=== PATIENT | female | born 1995 | race Two or more races ===

== ENCOUNTER 2024-05-05 12:14 | Inpatient (IN) | payer MEDICAID, OTHER ==
[~2024-05-05] VITALS: Ht 167.6 cm; Wt 75.8 kg
[2024-05-05] MEDS ORDERED: HALOPERIDOL 5 MG TABLET PO PRN (13:15)
[2024-05-05 14:43] LABS: BASOPHILS % (AUTO) 0.3 % (0.0-2.0); EOSINOPHILS % (AUTO) 0.3 % (1.0-6.0); HEMATOCRIT 39.3 % (36-46); HEMOGLOBIN 13.2 g/dL (12.0-16.0); LYMPHOCYTES # (AUTO) 1.8 K/uL (1.0-4.8); LYMPHOCYTES % (AUTO) 17.2 % (22.0-44.0); MEAN CORPUSCULAR HEMOGLOBIN 30.1 pg (26.0-34.0); MEAN CORPUSCULAR HGB CONC 33.7 G/dL (31.0-37.0); MEAN CORPUSCULAR VOLUME 89 fL (80-100); MONOCYTES # (AUTO) 0.5 K/uL (0.1-1.0); MONOCYTES % (AUTO) 4.5 % (2.0-9.0); NEUTROPHILS % (AUTO) 77.7 % (40.0-70.0); PLATELET COUNT (AUTO) 309 K/uL (150-450); RED CELL DISTRIBUTION WIDTH 12.8 % (11.5-14.5); WHITE BLOOD COUNT (AUTO) 10.3 K/uL (4.5-11.0)
[2024-05-05 14:55] LABS: ANION GAP 9 mmol/L (8-16); CALCIUM, TOTAL 9.5 mg/dL (8.8-10.5); CARBON DIOXIDE 27 mmol/L (22-29); CHLORIDE 102 mmol/L (98-107); CREATININE 0.77 mg/dL (0.60-1.30); GLOMERULAR FILTR. RATE CALC > 60 mL/min (>60); GLUCOSE,RANDOM 98 mg/dL (70-110); POTASSIUM 3.9 mmol/L (3.5-5.1); SODIUM SERUM 138 mmol/L (136-145); UREA NITROGEN, BLOOD 11 mg/dL (7-18)
[2024-05-05 14:59] LABS: ALCOHOL, BLOOD (SERUM) < 3 mg/dL (0-10)
[2024-05-05 16:17] LABS: COVID AG,FIA SOURCE NASAL SWAB
[2024-05-05 16:29] LABS: SARS-COV2 (COVID) ANTIGEN,FIA Negative (Negative)
[2024-05-05 17:43] VITALS: BP 121/84; PULSE 68; RESP 18; TEMP 97.8; O2SAT 96
[2024-05-05 20:43] VITALS: BP 106/68; PULSE 71; RESP 18; TEMP 97.4; O2SAT 98
[2024-05-06 10:17] VITALS: BP 115/69; PULSE 69; RESP 18; TEMP 97.6; O2SAT 97
[2024-05-06] MEDS: ARIPiprazole 10 MG TABLET PO SCH (11:53)
[2024-05-06 20:36] VITALS: BP 111/71; PULSE 78; RESP 18; TEMP 98.7; O2SAT 97
[2024-05-07 09:08] VITALS: BP 116/60; PULSE 86; RESP 18; TEMP 98.7; O2SAT 97
[2024-05-07] MEDS: LORazepam 2 MG TABLET PO PRN (13:43)
[2024-05-07] MEDS: PALIPERIDONE PALMITATE 156 MG/ML SYRINGE IM SCH (17:07)
[2024-05-07] MEDS: ZOLPIDEM TARTRATE 10 MG TABLET PO PRN (21:39)
[2024-05-07 22:42] VITALS: BP 108/67; PULSE 89; RESP 18; TEMP 98.4; O2SAT 95
[2024-05-08 09:48] VITALS: BP 97/61; PULSE 93; RESP 18; TEMP 98.7; O2SAT 98
[2024-05-08 23:33] VITALS: BP 109/64; PULSE 77; RESP 18; TEMP 98.9; O2SAT 98
[2024-05-09 09:24] VITALS: BP 110/62; PULSE 80; RESP 17; TEMP 98.4; O2SAT 98
[2024-05-09] MEDS ORDERED: POTASSIUM CHLORIDE 20 MEQ ER TABLET PO ONE (19:00)
[2024-05-10 08:00] VITALS: BP 98/60; PULSE 88; RESP 18; TEMP 97.6; O2SAT 97
[2024-05-10 21:42] VITALS: BP 108/61; PULSE 60; RESP 18; TEMP 97.4; O2SAT 98
[2024-05-11 09:18] VITALS: BP 110/65; PULSE 72; RESP 19; TEMP 97.5; O2SAT 98
[2024-05-11 21:13] VITALS: BP 98/63; PULSE 19; RESP 18; TEMP 98; O2SAT 98
[2024-05-12 09:42] VITALS: BP 108/67; PULSE 70; RESP 18; TEMP 97.4; O2SAT 98
[2024-05-12 21:37] VITALS: BP 99/60; PULSE 80; RESP 18; TEMP 98.4; O2SAT 98
[2024-05-13 08:22] VITALS: BP 116/71; PULSE 83; RESP 18; TEMP 98.1; O2SAT 97
[2024-05-13 21:42] VITALS: BP 123/70; PULSE 85; RESP 18; TEMP 97.8; O2SAT 98
[2024-05-14 09:29] VITALS: BP 119/70; PULSE 72; RESP 18; TEMP 97.7; O2SAT 97
[2024-05-14] MEDS ORDERED: ARIP10TA38 PO (10:45)
[2024-05-14] MEDS ORDERED: PALI156D IM (10:45)
== END 2024-05-14 15:30 | disposition home or self-care (01) | DRG 750 ==
LOC: EMS 12:14 → 3EI 14:16
PROVIDERS: ADMIT Psychiatry & Neurology Child & Adolescent Psychiatry; ATTEND Psychiatry & Neurology Child & Adolescent Psychiatry
PROC: GZ52ZZZ Individual Psychotherapy, Cognitive (ICD-10-PCS; 2024-05-07)
PROC: GZHZZZZ Group Psychotherapy (ICD-10-PCS; principal; 2024-05-08)
PROC: GZ51ZZZ Individual Psychotherapy, Behavioral (ICD-10-PCS; 2024-05-08)
DX: F25.1 Schizoaffective disorder, depressive type (principal); R45.851 Suicidal ideations; G47.00 Insomnia, unspecified; F41.9 Anxiety disorder, unspecified; Z20.822 Contact with and (suspected) exposure to COVID-19
CPT/HCPCS: 80048; 84703; 85025; 99285; G0480

== ENCOUNTER 2024-06-12 10:38 | Inpatient (IN) | payer MEDICAID, OTHER ==
[~2024-06-12] VITALS: Ht 167.6 cm; Wt 78.0 kg
[~2024-06-12 10:38] MED LIST: ARIP10TA38 PO; PALI156D IM
[2024-06-12 12:27] LABS: COVID AG,FIA SOURCE NASAL SWAB
[2024-06-12 12:28] LABS: BASOPHILS % (AUTO) 0.3 % (0.0-2.0); EOSINOPHILS % (AUTO) 0.5 % (1.0-6.0); HEMATOCRIT 38.5 % (36-46); HEMOGLOBIN 13.1 g/dL (12.0-16.0); LYMPHOCYTES # (AUTO) 1.1 K/uL (1.0-4.8); LYMPHOCYTES % (AUTO) 13.5 % (22.0-44.0); MEAN CORPUSCULAR HEMOGLOBIN 30.2 pg (26.0-34.0); MEAN CORPUSCULAR HGB CONC 34.1 G/dL (31.0-37.0); MEAN CORPUSCULAR VOLUME 89 fL (80-100); MONOCYTES # (AUTO) 0.4 K/uL (0.1-1.0); MONOCYTES % (AUTO) 5.3 % (2.0-9.0); NEUTROPHILS # (AUTO) 6.5 K/uL (1.8-7.7); NEUTROPHILS % (AUTO) 80.4 % (40.0-70.0); PLATELET COUNT (AUTO) 303 K/uL (150-450); RED BLOOD CELL COUNT(AUTO) 4.35 MIL/uL (4.00-5.20); RED CELL DISTRIBUTION WIDTH 12.8 % (11.5-14.5)
[2024-06-12 12:49] LABS: ANION GAP 11 mmol/L (8-16); CALCIUM, TOTAL 9.8 mg/dL (8.8-10.5); CARBON DIOXIDE 25 mmol/L (22-29); CHLORIDE 103 mmol/L (98-107); CREATININE 0.74 mg/dL (0.60-1.30); GLOMERULAR FILTR. RATE CALC > 60 mL/min (>60); GLUCOSE,RANDOM 97 mg/dL (70-110); SODIUM SERUM 139 mmol/L (136-145); UREA NITROGEN, BLOOD 12 mg/dL (7-18)
[2024-06-12 12:50] LABS: ALCOHOL, BLOOD (SERUM) < 3 mg/dL (0-10)
[2024-06-12 12:54] LABS: ALANINE AMINOTRANSFERASE 32 U/L (12-78); ALBUMIN 4.3 g/dL (3.4-5.0); ALKALINE PHOSPHATASE 78 U/L (46-116); ASPARTATE AMINOTRANSFERASE 14 U/L (15-37); BILIRUBIN,TOTAL 0.4 mg/dL (0.1-1.0)
[2024-06-12 12:59] LABS: SARS-COV2 (COVID) ANTIGEN,FIA Negative (Negative)
[2024-06-12 13:13] LABS: PH,URINE DRUG SCREEN 7.5 (5.0-8.0)
[2024-06-12 13:33] LABS: ALCOHOL, URINE DRUG SCREEN NEGATIVE (NEGATIVE); AMPHET/METH SCREEN,URINE NEGATIVE (NEGATIVE); BARBITURATE SCREEN, URINE NEGATIVE (NEGATIVE); BENZODIAZEPINES SCREEN,URINE NEGATIVE (NEGATIVE); CANNABINOID SCREEN,URINE NEGATIVE (NEGATIVE); COCAINE SCREEN,URINE NEGATIVE (NEGATIVE); METHADONE SCREEN, URINE NEGATIVE (NEGATIVE); OPIATE SCREEN,URINE NEGATIVE (NEGATIVE); PHENCYCLIDINE SCREEN,URINE NEGATIVE (NEGATIVE)
[2024-06-12] MEDS ORDERED: HALOPERIDOL 5 MG TABLET PO PRN (22:30)
[2024-06-13 00:10] VITALS: BP 115/69; PULSE 71; RESP 18; TEMP 98.2; O2SAT 99
[2024-06-13] MEDS ORDERED: IBUPROFEN 600 MG TABLET PO PRN (06:00)
[2024-06-13] MEDS ORDERED: OMEPRAZOLE 20 MG CAPSULE PO PRN (06:00)
[2024-06-13] MEDS ORDERED: MAG HYDROX/ALUMINUM HYD/SIMETH ES 30 ML SUSPENSION UDCUP PO PRN (06:00)
[2024-06-13] MEDS ORDERED: CloNIDine HCL 0.1 MG TABLET PO PRN (06:00)
[2024-06-13] MEDS ORDERED: ALBUTEROL SULFATE HFA 90 MCG/PUFF 8 GM INHALER IH PRN (06:00)
[2024-06-13] MEDS ORDERED: BACITRACIN 28 GM OINTMENT TP PRN (06:00)
[2024-06-13] MEDS ORDERED: LOPERAMIDE HCL 2 MG CAPSULE PO PRN (06:00)
[2024-06-13] MEDS ORDERED: ONDANSETRON HCL 4 MG TABLET PO PRN (06:00)
[2024-06-13] MEDS ORDERED: DOCUSATE SODIUM 100 MG CAPSULE PO PRN (06:00)
[2024-06-13] MEDS ORDERED: PETROLATUM,WHITE 28 GM JELLY TP PRN (06:00)
[2024-06-13] MEDS ORDERED: BENZOCAINE/MENTHOL LOZENGE PO PRN (06:00)
[2024-06-13] MEDS ORDERED: ACETAMINOPHEN 325 MG TABLET PO PRN (06:00)
[2024-06-13 08:09] VITALS: BP 103/70; PULSE 85; RESP 16; TEMP 98.1; O2SAT 99
[2024-06-13] MEDS: LORazepam 2 MG TABLET PO PRN (10:31)
[2024-06-13 20:00] VITALS: BP 112/67; PULSE 95; RESP 16; TEMP 97.8; O2SAT 97
[2024-06-14 09:00] VITALS: BP 113/55; PULSE 76; RESP 18; TEMP 84.8; O2SAT 98
[2024-06-14] MEDS: ARIPiprazole 10 MG TABLET PO SCH (09:21)
[2024-06-14] MEDS: LITHIUM CARBONATE 300 MG CAPSULE PO SCH (09:21)
[2024-06-14] MEDS: PALIPERIDONE PALMITATE 234 MG/1.5 ML SYRINGE IM SCH (15:59)
[2024-06-14 20:20] VITALS: BP 101/70; PULSE 71; RESP 18; TEMP 98; O2SAT 99
[2024-06-15 08:21] VITALS: BP 101/65; PULSE 73; RESP 17; TEMP 97.4; O2SAT 98
[2024-06-15 20:34] VITALS: BP 119/61; PULSE 78; RESP 18; TEMP 98.1; O2SAT 97
[2024-06-16 09:54] VITALS: BP 121/66; PULSE 81; RESP 16; TEMP 98.1; O2SAT 97
[2024-06-16] MEDS: MAGNESIUM HYDROXIDE SUSPENSION 30 ML UDCUP PO PRN (13:40)
[2024-06-16 20:27] VITALS: BP 112/72; PULSE 85; RESP 16; TEMP 97.6; O2SAT 99
[2024-06-17 08:14] VITALS: BP 116/77; PULSE 94; RESP 18; TEMP 97.8; O2SAT 95
[2024-06-17 21:48] VITALS: BP 109/60; PULSE 82; RESP 18; TEMP 97.4; O2SAT 97
[2024-06-18 08:35] VITALS: BP 107/68; PULSE 82; RESP 18; TEMP 97.9; O2SAT 97
[2024-06-18 20:46] VITALS: BP 110/75; PULSE 100; RESP 19; TEMP 98; O2SAT 100
[2024-06-19 08:42] VITALS: BP 106/60; PULSE 96; RESP 18; TEMP 97.7; O2SAT 98
[2024-06-19 20:00] VITALS: BP 97/60; PULSE 80; RESP 17; TEMP 97.7; O2SAT 98
[2024-06-20 08:41] VITALS: BP 100/60; PULSE 98; RESP 17; TEMP 97.9; O2SAT 98
[2024-06-20 20:36] VITALS: BP 119/82; PULSE 95; RESP 18; TEMP 98.4; O2SAT 99
[2024-06-20] MEDS: ZOLPIDEM TARTRATE 10 MG TABLET PO PRN (21:29)
[2024-06-21 08:29] VITALS: BP 108/67; PULSE 62; RESP 18; TEMP 97.7; O2SAT 97
[2024-06-21 09:00] VITALS: BP 108/67; PULSE 62; RESP 18; TEMP 97.7; O2SAT 97
[2024-06-21 22:57] VITALS: BP 121/86; PULSE 90; RESP 18; TEMP 97.6; O2SAT 97
[2024-06-22 08:28] VITALS: BP 128/60; PULSE 120; RESP 17; TEMP 97.5; O2SAT 90
[2024-06-22 09:42] VITALS: BP 104/54; PULSE 92; RESP 18; TEMP 97.4; O2SAT 96
[2024-06-22 20:26] VITALS: BP 118/60; PULSE 90; RESP 19; TEMP 97.5; O2SAT 98
[2024-06-23 08:15] VITALS: BP 104/62; PULSE 76; RESP 18; TEMP 97.7; O2SAT 97
[2024-06-23 20:29] VITALS: BP 112/65; PULSE 78; RESP 18; TEMP 98.2; O2SAT 99
[2024-06-24 08:32] VITALS: BP 106/70; PULSE 88; RESP 18; TEMP 97.5; O2SAT 97
[2024-06-24 16:12] VITALS: BP 119/81; RESP 18; O2SAT 97
[2024-06-24 20:29] VITALS: BP 114/65; PULSE 78; RESP 16; TEMP 98.3; O2SAT 97
[2024-06-25] MEDS ORDERED: LITH300C3 PO (05:28)
[2024-06-25] MEDS ORDERED: PALI234D IM (05:28)
[2024-06-25] MEDS ORDERED: ARIP10TA38 PO (05:28)
[2024-06-25 08:52] VITALS: BP 107/62; PULSE 82; RESP 17; TEMP 97.2; O2SAT 96
== END 2024-06-25 10:15 | disposition home or self-care (01) | DRG 750 ==
LOC: EMS 10:38 → B3A 22:19 → B2S 06-13 11:11
PROVIDERS: ADMIT Psychiatry & Neurology Child & Adolescent Psychiatry; ATTEND Psychiatry & Neurology Psychiatry
PROC: GZHZZZZ Group Psychotherapy (ICD-10-PCS; principal; 2024-06-14)
PROC: GZ52ZZZ Individual Psychotherapy, Cognitive (ICD-10-PCS; 2024-06-14)
DX: F25.0 Schizoaffective disorder, bipolar type (principal); R45.851 Suicidal ideations; Z20.822 Contact with and (suspected) exposure to COVID-19; F41.9 Anxiety disorder, unspecified; G47.00 Insomnia, unspecified; K59.00 Constipation, unspecified; Z81.8 Family history of other mental and behavioral disorders; Z79.899 Other long term (current) drug therapy
CPT/HCPCS: 80053; 80307; 84702; 85025; 99285; G0480